=== PATIENT | male | born 1985 | race Caucasian/White ===

== ENCOUNTER 2016-04-16 14:38 | Inpatient (IN) | END 2016-04-17 16:55 | disposition home or self-care (01) | DRG 158 | DX: S01.511A Laceration without foreign body of lip, initial encounter (principal); Z68.42 Body mass index [BMI] 45.0-49.9, adult; S09.93XA Unspecified injury of face, initial encounter; R04.0 Epistaxis; E66.9 Obesity, unspecified; Y35.893A Legal intervention involving other specified means, suspect injured, initial encounter; Y92.009 Unspecified place in unspecified non-institutional (private) residence as the place of occurrence of the external cause ==

== ENCOUNTER 2016-10-08 13:46 | Emergency (ER) | payer SELFPAY ==
[~2016-10-08] VITALS: Ht 180.3 cm; Wt 157.0 kg
[2016-10-08 13:49] VITALS: Ht 180.3 cm; Wt 157.0 kg
[2016-10-08] MEDS ORDERED: KETOROLAC 60 MG INJ IM STA (14:10)
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
[2016-10-08] MEDS ORDERED: IBUP800T25 PO (16:28)
== END 2016-10-08 16:58 | disposition home or self-care (01) ==
LOC: FTE 13:46
DX: S39.92XA Unspecified injury of lower back, initial encounter (principal); S29.9XXA Unspecified injury of thorax, initial encounter; V44.5XXA Car driver injured in collision with heavy transport vehicle or bus in traffic accident, initial encounter
CPT/HCPCS: 71020; 71100; 72100; J1885; 96372